=== PATIENT | male | born 1955 | race Hispanic/Latino ===

== ENCOUNTER 2024-06-12 08:43 | Outpatient (CLI) | payer MEDICARE | END 2024-06-12 08:44 | disposition home or self-care (01) | LOC: CSHSLEEP 08:43 | PROVIDERS: ATTEND Internal Medicine Critical Care Medicine | DX: G47.33 Obstructive sleep apnea (adult) (pediatric) (principal); R53.83 Other fatigue; R06.83 Snoring | CPT/HCPCS: 95811 ==